=== PATIENT | female | born 1995 | race Caucasian/White ===

== ENCOUNTER 2020-10-01 21:21 | Emergency (ER) | payer MEDICAID ==
[~2020-10-01] VITALS: Ht 167.6 cm; Wt 118.0 kg
[2020-10-01 21:25] VITALS: BP 162/87
[2020-10-01] MEDS ORDERED: CLIN150C14 PO (22:16)
--- NOTE | 2020-10-01 22:16 | ED.ADGEN ---
Past Medical History Past Medical History: No Pertinent History Past Surgical History: Tonsillectomy Smoking Status: Current Every Day Smoker Alcohol Use: None General Adult EDM: Chief Complaint: SORE THROAT HPI: HPI: Patient is a 25 year old female who presents the emergency department via EMS with complaints of swollen lymph nodes in front of her right ear, right ear pain, sore throat for the last 2 days. She denies any dental pain, fever, cough, shortness of breath, nausea, vomiting, diarrhea, abdominal pain, myalgias, or headache. Currently rates pain 8 out of 10 on the pain scale, she denies any known COVID-19 exposure. Review of Systems: Review of Systems: Complete ROS is negative unless otherwise noted in HPI. Physical Exam: PE: See Above Constitutional: Well developed, well nourished, no acute distress, non-toxic appearance, morbidly obese. [] HENT: Normocephalic, atraumatic, bilateral external ears normal, bilateral TMs normal, no mastoid tenderness, nose normal; right preauricular lymph node e nlargement and tenderness to palpation concerning for parotiditis, no visible dental abscess, no dental tenderness to palpation [] Eyes: PERRLA, EOMI, conjunctiva normal, no discharge. [] Neck: Normal range of motion, no stridor, supple, nontender. [] Cardiovascular:Heart rate regular rhythm Lungs & Thorax: Respirations even and unlabored, no retractions, no respiratory distress Skin: Warm, dry, no erythema, no rash. [] Extremities: No cyanosis, ROM intact, no edema. [] Neurologic: Alert and oriented X 3, no focal deficits noted. [] Psychologic: Affect normal, judgement normal, mood normal. [] Current Patient Data: Vital Signs: Vital Signs Date Time Temp Pulse Resp B/P (MAP) Pulse Ox O2 Delivery O2 Flow Rate FiO2 10/01/20 21:25 98.7 87 13 162/87 (112) 97 Room Air 98.7 EKG: EKG: [] Heart Score: Risk Factors: Risk Factors: DM, Current or recent (<one month) smoker, HTN, HLP, family his tory of CAD, obesity. Risk Scores: Score 0 - 3: 2.5% MACE over next 6 weeks - Discharge Home Score 4 - 6: 20.3% MACE over next 6 weeks - Admit for Clinical Observation Score 7 - 10: 72.7% MACE over next 6 weeks - Early Invasive Strategies Radiology/Procedures: Radiology/Procedures: [] Course & Med Decision Making: Course & Med Decision Making I have reviewed the PA/AVIONICS REPAIR TECHNICIAN's note and Plan of Care. I was available for c onsultation as needed during the patient's visit in the emergency department. I agree with the clinical impression, plans and disposition.Pertinent Labs and Imaging studies reviewed. (See chart for details) [] Dragon Disclaimer: Dragon Disclaimer: This electronic medical record was generated, in whole or in part, using a voice recognition dictation system. Departure Departure Impression: Primary Impression: Acute parotitis Disposition: 01 DC HOME SELF CARE/HOMELESS Condition: STABLE Referrals: NO PCP (PCP) FATIMAH LI MD Patient Instructions: Parotitis, [id number] Additional Instructions: Fill the prescription and use it as directed. Recommend sucking on lemon drops to help ease discomfort. You can also take Tylenol or ibuprofen as needed for pain. Follow-up with ear nose and throat Dr. Li next week. Return to the ER if symptoms worsen. Scripts Clindamycin Hcl (CLINDAMYCIN HCL) 150 Mg Capsule 450 MG PO TID for 7 Days, #63 CAP 0 Refills Prov: FENG ELAINE APRN 10/01/20 FENG ELAINE APRN Oct 01, 2020 22:16 JOVAN MOORE MD Oct 01, 2020 23:52
== END 2020-10-01 22:26 | disposition home or self-care (01) ==
LOC: ER 21:21
DX: K11.21 Acute sialoadenitis (principal); H92.01 Otalgia, right ear; F17.200 Nicotine dependence, unspecified, uncomplicated; Z90.89 Acquired absence of other organs
CPT/HCPCS: 99283